=== PATIENT | female | born 1965 | race Caucasian/White ===

== ENCOUNTER 2023-03-30 08:29 | Outpatient (OUT) | payer OTHER, SELFPAY ==
--- NOTE | 2023-03-30 08:43 | XR_ITS ---
The [address] [address] Patient Name: LARRY ABREU MRN: [id number] date: 1965 Sex: F Assigned Patient Location: [facility] Current Patient Location: [facility] Accession/Order Number: [id number] Exam Date: 03/30/2023 08:50 Report Date: 03/30/2023 09:16 At the request of: PASCUAL LEVINE Procedure: XR foot LT min 3V EXAM: XR foot LT min 3V HISTORY: Left Foot Pain COMPARISON: None. TECHNIQUE: 3 views FINDINGS: No acute fracture or dislocation. Mild to moderate intertarsal degenerative changes. Mild soft tissue swelling. XR/XR foot LT min 3V IMPRESSION: Degenerative change of the midfoot as above. Electronically authenticated by: BERNICE GARCIA Date: 03/30/2023 09:16
== END 2023-03-30 08:30 | disposition home or self-care (01) ==
PROVIDERS: PCP Family Medicine; Visit Provider Podiatrist Foot & Ankle Surgery
DX: M79.671 Pain in right foot (principal); M79.672 Pain in left foot
CPT/HCPCS: 73630